=== PATIENT | male | born 1970 | race Two or more races ===

== ENCOUNTER 2024-01-04 08:00 | Outpatient (AMB) | payer OTHER, SELFPAY ==
--- NOTE | 2024-01-04 08:12 | MHC.OFFWIV ---
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 Patient is reporting irritation in the left eye for the past week. Mucoid discharge from the left eye. No foreign body sensation. Physical Exam Vital Signs: Last Vital Signs Temp 98.3 F 01/04/24 08:13 Pulse 60 01/04/24 08:13 BP 110/70 01/04/24 08:13 Pulse Ox 98 01/04/24 08:13 Oxygen Delivery Method Room Air 01/04/24 08:13 BMI result Body Mass Index 27.1 Const General: cooperative and healthy appearing Nutritional Appearance: well nourished Orientation/consciousness: patient oriented x3 Limitations: no limitations HEENT Other: Left eye: Bulbar conjunctiva is congested. Corneas clear. Anterior chambers clear. No digital tenderness. No cervical lymphadenopathy. Head: Yes normal to inspection Eyes General: appearance normal, both eyes and all related structures Neck Neck: Yes normal visual inspection Chest Chest palpation & inspection: normal palpation of entire chest wall Resp Effort & Inspection: normal respiratory effort Neuro General: patient oriented x3 Assessment & Plan Assessment & Plan (1) Conjunctivitis, left eye: Code(s): H10.9 - Unspecified conjunctivitis Plan: Allergic or infectious etiology. Erythromycin ointment and will up-to-date called in. Symptoms do not improve to follow-up here. Hand washing education done. Coding Level of Care Code New Pt Level 3 (00394) Diagnoses Conjunctivitis, left eye H10.9
[2024-01-04 08:13] VITALS: BP 110/70; PULSE 60; TEMP 36.8; O2SAT 98; BMI 27.1
== END 2024-01-04 08:22 | disposition home or self-care (01) ==
PROVIDERS: Visit Provider Internal Medicine
DX: H10.9 Unspecified conjunctivitis (principal)
CPT/HCPCS: 99203